=== PATIENT | female | born 1975 | race Two or more races ===

== ENCOUNTER 2024-07-31 15:56 | Outpatient (REF) | payer OTHER, SELFPAY ==
--- NOTE | ~2024-07-31 | CT_ITS ---
EXAMINATION: CT HEAD WITHOUT CONTRAST CLINICAL INFORMATION: Migraine headaches COMPARISON: None available. TECHNIQUE: Contiguous axial imaging was performed from the skull base to vertex without intravenous administration of contrast. This CT examination was performed using dose optimization techniques as appropriate, variously including the following: *Automated exposure control *Adjustment of mA and/or kV according to patient size (this includes techniques or standardized protocols for targeted exams where dose is matched to indication/reason for exam; i.e. extremities or head) *Use of iterative reconstruction technique DLP: 845 mGY*cm FINDINGS: There is no acute ischemic change. There is no intracranial hemorrhage. There is no mass-effect or midline shift. Basal cisterns and ventricles are within normal limits for age/cerebral volume. Orbits are symmetrical and unremarkable. Minimal mucosal thickening is present in the anterior ethmoid air cells and adjacent frontal sinuses. There are no bony abnormalities. CT/CT head/brain wo IV con IMPRESSION: No acute intracranial abnormality. Minimal mucosal thickening in the anterior ethmoid air cells and adjacent frontal sinuses. Electronically signed by: Heladio Reyes MD 07/31/2024 04:46 PM EDT
== END 2024-07-31 15:57 | disposition home or self-care (01) ==
LOC: HO.CT 15:56
PROVIDERS: PCP Pediatrics; Visit Provider Psychiatry & Neurology Neurology
DX: G43.909 Migraine, unspecified, not intractable, without status migrainosus (principal)
CPT/HCPCS: 70450

== ENCOUNTER → 2024-07-31 16:07 | Outpatient (BNV) | payer OTHER, SELFPAY | PROVIDERS: PCP Pediatrics; Visit Provider Radiology Diagnostic Radiology | DX: G43.909 Migraine, unspecified, not intractable, without status migrainosus (principal) | CPT/HCPCS: 70450 ==

== ENCOUNTER 2024-10-23 09:02 | Outpatient (AMB) | payer OTHER, SELFPAY ==
--- NOTE | 2024-10-23 09:04 | A.OFFVIS_ITS ---
Intake Visit Reasons: follow up Allergies Penicillins Allergy (Unknown, Verified 10/23/24 09:17) Unknown Medication List - Last Reconciled 10/23/24 by Yudy Le CNP albuterol sulfate 90 mcg/actuation (Ventolin HFA) inhalation atomoxetine 80 mg PO QAM budesonide 180 mcg/actuation (Pulmicort Flexhaler) 1 inh inhalation BID escitalopram oxalate 20 mg PO DAILY fluticasone propion-salmeterol 250-50 mcg/dose (Advair Diskus) 1 ea inhalation BID levothyroxine 50 mcg PO DAILY rimegepant (Nurtec ODT) 75 mg PO Q OTHER DAY 30 days HPI Comments Details: She tried Emgality, but had side effects of low grade stinging headache, fatigue, anxiety and depression, and medication was stopped. Mood was better after stopping Emgality. She started Nurtec every other day on 10/03/2024 and migraines were better. Migraines were happening about 4x/week, but not as severe. Symptoms associated with migraines including trouble with coordination, fatigue, and mental fog were also better and did not last as long. Symptoms still lasted about 8 hours, but cleared up about 6 hours sooner than before starting medication. She was taking Advil 600mg twice a day for joint pain. Migraines intensified around 05/2024. Does well after Botox with significant decrease in frequency and intensity, down to 2x/week. Last Botox 01/2024. Tried Nurtec which worked well without side effects. Pain came back after 6 hrs. Increase with menses and humidity and humid area. Before Botox was getting migraines 3x/week currently. 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 Rizatriptan works, but very tired for 2 hrs. Had optical migraine for 5-10 minutes on 09/07/2023. Her migraines that started over 15 years ago. She has seen a few neurologists in the [place] area and had one visit to the migraine clinic at [facility]. She says that in the past she has tried a single injection of Aimovig, prophylaxis with amitriptyline, topiramate, and may have taken propranolol, but is not sure, and one Botox injection in the past. Previously, migraines were happening 2-4x/week and could last 2-3 days. She takes Advil and lies down and it starts to improve in 45 min. She feels hung over during the migraine and after the migraine. They can be triggered by her hormonal cycles every 28 days, as well as with lights and noises, foods, including onion, garlic, wine and possibly citrus, and with weather changes, heat and humidity. She does not get an aura. Family history of anxiety and cancer, but not migraines. She cannot function in a job currently as she loses too much time from work because of her migraines, as she cannot drive or function and has to be in bed. Rizatriptan also makes her nonfunctional for 3-4 hours. Review of Systems Const Denies chills, Denies daytime sleepiness, Reports difficulty sleeping, Reports fatigue, Denies fever(s), Denies frequent falls, Reports headache(s), Denies increased appetite, Denies poor appetite, Denies snoring, Denies weakness, Denies weight gain and Denies weight loss Eyes Denies loss of vision ENT Denies vertigo, Denies dizziness, Reports headache(s) and Reports neck pain Card Denies chest pain at rest, Denies chest pain with activity, Denies syncope, Denies leg edema, Denies palpitations, Denies dyspnea and Denies dyspnea on exertion Resp Denies cough, Denies dyspnea, Denies dyspnea on exertion and Denies snoring GI Denies abdominal pain, Denies constipation, Denies heartburn, Denies diarrhea and Denies nausea Denies urinary frequency, Denies urinary incontinence and Denies urinary urgency Musc Denies abnormal gait, Reports back pain, Reports myalgias, Reports arthralgias, Reports neck pain, Denies numbness and Denies tingling Neuro Denies abnormal gait, Denies vertigo, Denies dizziness, Denies syncope, Denies frequent falls, Reports headache(s), Denies lack of coordination, Denies loss of vision, Denies memory loss, Denies numbness, Denies Other visual disturbances, Denies restless legs, Denies seizure-like activity, Denies tingling, Denies paresthesias, Denies tremor(s) and Denies weakness Psych Reports anxiety, Reports depression, Denies auditory hallucinations, Denies memory loss and Denies visual hallucinations Endo Reports fatigue and Denies palpitations Physical Exam Const Other: Deferred due to televisit. Telehealth Telehealth Telehealth Platform: Telephone Location of provider rendering services: practice address Location of patient: address on file Patient Identification confirmed using: Name, : Yes Telehealth method: voice only Patient verbally consented to treatment: Yes Patient verbally consented to billing insurance company: Yes Results Reviewed Results Reviewed: [address] [address] [address] Scan Report Signed Patient: Ann Sue MR#: [id number] : 1975 Acct:[id number] Age/Sex: 48 / F ADM Date: 07/31/24 Loc: HO.CT Attending Dr: Luan Lyle MD Ordering Physician: Luan Lyle MD Date of Service: 07/31/24 Procedure(s): CT head/brain wo IV con Accession Number(s): [id number] cc: Yesenia Dillon MD; Luan Lyle MD~ Report Number: [id number]: Total DLP = 845.00 mGy-cm EXAMINATION: CT HEAD WITHOUT CONTRAST CLINICAL INFORMATION: Migraine headaches COMPARISON: None available. TECHNIQUE: Contiguous axial imaging was performed from the skull base to vertex without intravenous administration of contrast. This CT examination was performed using dose optimization techniques as appropriate, variously including the following: *Automated exposure control *Adjustment of mA and/or kV according to patient size (this includes techniques or standardized protocols for targeted exams where dose is matched to indication/reason for exam; i.e. extremities or head) *Use of iterative reconstruction technique DLP: 845 mGY*cm FINDINGS: There is no acute ischemic change. There is no intracranial hemorrhage. There is no mass-effect or midline shift. Basal cisterns and ventricles are within normal limits for age/cerebral volume. Orbits are symmetrical and unremarkable. Minimal mucosal thickening is present in the anterior ethmoid air cells and adjacent frontal sinuses. There are no bony abnormalities. CT/CT head/brain wo IV con IMPRESSION: No acute intracranial abnormality. Minimal mucosal thickening in the anterior ethmoid air cells and adjacent frontal sinuses. Electronically signed by: Heladio Reyes MD 07/31/2024 04:46 PM EDT Assessment & Plan Assessment & Plan (1) Migraine: Code(s): G43.909 - Migraine, unspecified, not intractable, without status migrainosus Category: Medical Qualifiers: Intractability: not intractable Migraine type: unspecified Status migrainosus presence: without status migrainosus Qualified Code(s): G43.909 - Migraine, unspecified, not intractable, without status migrainosus Plan: CT scan results reviewed. Continue Nurtec 75mg 1 tablet every other day. Plan Has tried and failed: topiramate, propranolol, amitriptyline, botox, emgality (side effects), sumatriptan, rizatriptan Coding Level of Care Code Tele Est Pt Level 3 (46466) Diagnoses Migraine without status migrainosus, not intractable, unspecified migraine type G43.909 Intractability: not intractable Migraine type: unspecified Status migrainosus presence: without status migrainosus
--- OUTSIDE RECORDS SUMMARY | 2024-10-23 09:52 | XMS_ITS | Encounter Summary ---
Author Organization [facility] Address [address] [place] [phone] Phone Care Team Providers Care Supervisor Soldering Name Role Phone Rain Martinez MD Primary Care Provider [phone] Unknown, Unknown Primary Care Provider Kristina levy Pcp, Unknown Primary Care Provider Yesenia Mccullough MD Primary Care Provid er Encounter Details Date Type Department Care Team (Late st Contact Info) Description 02/23/2020 Transcribe Orders Virtual Department [address] [place] [address] Christian Nolan, [employer] [address] [place] [address] Cough (Primary Dx) Social History Tobacco Use Types Packs/Day Years Used Date Smoking Tobacco: Never Smokeless Tobacco: Never Alcohol Use Standard Drinks/Week Comments No 0 (1 standard drink = 0.6 oz pur e alcohol) Comments Unknown Sex and Gender Information Value Date Recorded Sex Assigned at Female 06/23/2020 3:36 PM EDT Legal Sex Female 7:31 PM EST Gender Identity Female 06/23/2020 3:36 PM EDT Sexual Orientation Bisexual 06/23/2020 3: 36 PM EDT documented as of this encounter Plan of Treatment Not on file documented as of this encounter Results * COVID-19 PCR Order (02/24/2020 10:00 AM EST) COVID Testing Status Specimen received in analyzing lab. [facility] Symptomatic? YES [facility] Other 02/24/2020 10:0 0 AM EST 02/24/2020 12:19 PM EST Christian Imanifamilia Nolan [employer] BODY FLUIDS AND STOOLS ORD ERABLES Final Result [facility] [address] [place] [address] [facility] [address] [place] [id number] documented in this encounter Visit Diagnoses Diagnosis Cough- Primary documented in this encounter Additional Health Concerns Infection Onset Date Last Indicated Resolved Time CoV-Risk 02/23/2020 02/24/2020 03/04/2020 1:25 AM EST CoV-Risk 10/26/2021 10/26/2021 11/06/2021 1:22 AM EDT documented as of this encounter Care Teams Supervisor Soldering Relationship Specialty Start Date End Date Rain Martinez MD [address] [place] [id number] [email or web address] PCP - General Family Medicine 11/17/18 07/25/21 Unknown, Unknown, PCP - General 07/26/21 10/25/21 Pcp, Unknown PCP - General 10/26/21 03/11/23 Yesenia Dillon MD [facility] [address] [address] PCP - General Internal Medicine 03/12/23 documented as of this encounter Additional Source Comments The information contained in this document represents components of the legal health record. It is not the complete legal health record.[facility]
--- OUTSIDE RECORDS SUMMARY | 2024-10-23 09:52 | XMS_ITS | Clinical Summary ---
Author Organization [facility] Address [address] [facility] [address] [place] [address] Phone Care Team Providers Care Geothermal Heat Pump Machinist Name Role Phone Yesenia Dillon MD Primary Care Provid er Allergies Active Allergy Reactions Criticality Noted Date Comments Latex Itching 11/30/2011 Penicillins Rash Medium 01/26/2008 Shellfish Derived Rash,Swelling High 01/26/2008 Medications sertraline (ZOLOFT) 100 MG tablet Take 100 mg by mouth daily. 2 tabs daily 5 Active ibuprofen (ADVIL,MOTRIN) 600 MG tablet Take 600 mg by mouth 4 (four) times a day. 5 Active fluticasone propionate (FLONASE) 50 mcg/actuation nasal spray 1 spray by Nasal route daily. Active ascorbic acid, vitamin C, (VITAMIN C) 100 MG tablet Take 100 mg by mouth daily. Active atomoxetine (STRATTERA) 80 mg capsule Take 80 mg by mouth every morning. 3 Active VENTOLIN HFA 90 mcg/actuation inhaler INHALE 2 PUFFS EVERY 4 HOURS NEEDED FOR WHEEZING OR SHORTNESS OF BREATH 3 Active budesonide (PULMICORT FLEXHALER) 180 mcg/actuation inhaler Inhale into the lungs. 2 Active fremanezumab-vf rm (AJOVY AUTOINJECTOR) 225 mg/1.5 mL AtIn Inject 225 mg under the skin. 2 Active escitalopram oxalate (LEXAPRO) 20 MG tablet Take 20 mg by mouth every morning. 3 Active propranoloL (INDERAL) 60 MG immediate release tablet Take 60 mg by mouth daily. 4 Active rizatriptan (MAXALT) 10 MG tablet Take 10 mg by mouth as needed. 4 Active Active Problems Problem Noted Date Diagnosed Date Inclusion cyst of vulva 01/28/2018 Overview (01/28/2018): 2018 Healing inclusion cyst that had been lanced and drained of sebum by pt. Healing well. Assessment & Plan (01/28/2018 1:57 PM EST): Healing inclusion cyst that had been lanced and drained of sebum by pt. Healing well. Abnormal uterine bleeding 10/11/2017 Overview (03/13/2023): With risk factors for EIN TSH 5.16 February 2023 , Advised to see her GP to get this treated Assessment & Plan (03/12/2023 6:05 PM EST): Unable to obtain an office biopsy easily, will defer to the sonohysterogram findings as to whether or not any tissue sampling should be obtained that day. I would encourage it given that she has significant risk factors for EIN. Some options for empiric treatment which can also address the menstrual migraine were reviewed, however she has tried various oral contraceptives including progestin only and an IUD in the past and did not have good results. She is primarily interested in making sure that there is no underlying precancerous or cancerous pathology to this Assessment & Plan (11/13/2017 12:29 PM EDT): EMB completed, await pathology results. Likely AUB-O related to perimenopause. Assessment & Plan (10/11/2017 9:12 PM EDT): Reviewed ddx of bleeding pattern including anovulatory bleeding, structural abnormality (i.e. Endometrial polyp/fibroid), or even chronic inflammation/infection. In the setting of normal pelvic exam today, recommend beginning evaluation with SHG to assess uterine lining Reviewed procedure and possible findings. Mild intermittent asthma, uncomplicated 08/14/19 15 History of depression 08/13/2014 Acquired absence of other organs 08/13/2014 Obsessive-compulsive disorder 11/30/2011 Overview (12/21/2016): Obsessive-compulsive disorder; Behavioral therapy 10 years ago - helpful. zoloft very effective. Followed by Kuldip Betancourt in [place]. Seasonal allergic rhinitis 11/30/2011 Overview (04/03/2014): Seasonal allergies; flonase prn Cough variant asthma 11/30/2011 Overview (04/03/2014): Cough variant asthma; managed with breathing exercise. Mixed anxiety and depressive disorder 11/30/2011 Overview (12/21/2016): Anxiety depression Followed at [facility], rx provider is there. Assessment & Plan (12/21/2016 10:45 AM EST): stable Migraine with aura and witho ut status migrainosus, not intractable 11/30/2011 Overview (03/12/2023): Migraine; in 2011 managed with Vimpat BID prescribed by neurologist. Frequency: up to 4/week. Topamax helped to suppress them 2023: Reports a strong menstrual component to these Assessment & Plan (03/12/2023 6:03 PM EST): Discussed that use of a fairly low-dose estradiol patch prior to the onset of menses is often very effective in preventing these menstrual migraines. Assessment & Plan (12/21/2016 10:53 AM EST): Restart Topamax Hemorrhoids 11/30/2011 Overview (04/03/2014): Hemorrhoids Uncoded H/O Pneumonia - age 14 11/30/2011 Overview (04/03/2014): H/O Pneumonia - age 14 Irritable bowel syndrome 11/06/1999 Overview (04/03/2014): Irritable bowel syndrome Attention deficit hyperactivity disorder 000 Overview (12/21/2016): ADD; previously followed by Kuldip Betancourt in [place]. Low back pain 11/06/1999 Overview (04/03/2014): Low back pain; onset 20yo, Assessment & Plan (12/21/2016 10:45 AM EST): Stable, no radiculopathy Encounters Date Type Department Care Team Description 09/05/2024 9:40 AM EDT - 09/05/2024 12:47 PM EDT Emergency [facility] [address] [place] [address] Discharge Disposition: Home or Self Care from Last 3 Months Immunizations Immunization Administration Dates Next Due COVID-19 (Pre-12/03) Pfizer Vaccine, mRNA, PF 09/30/2020,05/16/2020,04/23/2020 COVID-19 (Pre-12/03) Pfizer Vaccine, mRNA, rajinder-sucrose, PF 06/29/2021 INFLUENZA, SPLIT VIRUS, TRIV ALENT W/ PRESERVATIVE IM 11/20/2016,04/21/2014,11/08/2012 Influenza Quadrivalent MDCK Preservative Free IM 11/25/2018 Influenza Quadrivalent MDCK w/Preservative IM 01/01/2018 Influenza, whole 11/10/2018 Td, unspecified formulation 02/11/2010 Tdap 09/30/2020 Family History Medical History Relation Comments Glaucoma Father Heart disease Father Hyperlipidemia Father Hypertension Father Brain cancer Maternal Grandfather Lung disease Maternal Grandmother Breast cancer Mother Depression Mother Glaucoma Mother Coronary artery disease Paternal Grandfather Dementia Paternal Grandmother Relation Status Comments Father Alive Maternal Grandfather Maternal Grandmother Mother Alive Paternal Grandfather Paternal Grandmother Social History Tobacco Use Types Packs/Day Years Used Date Smoking Tobacco: Never Passive Smoke Exposure: Never Smokeless Tobacco: Never Tobacco Cessation:Counseling Given: Not Answered Alcohol Use Standard Drinks/Week Comments No 0 (1 standard drink = 0.6 oz pur e alcohol) Education Answer Date Recorded Are you interested in more education? Not on domonique e 06/07/2022 Are you concerned about learning? Not on file 06/07/2022 No 06/07/2022 No 06/07/2022 Food Answer Date Recorded Within the past 6 months we worried whether our food would run out before we got money to buy more. Never True 09/05/2024 Within the past 6 months the food we bought just didn't last and we didn't have enough money to get more. Never True Residential Stability Answer Date Recor ded What is your housing situation today? I have priyanka kahn 09/05/2024 How many times have you move d in the past 12 months? Zero (I did not move) 09/05/2024 Paying for Meds Answer Date Recorded Do you have trouble paying for medicines? No 09/05/2024 Paying Utility Bills Answer Date Record ed Do you have trouble paying your heating or elect ricity bill? No 09/05/2024 Transportation Answer Date Recorded Has the lack of transportati on kept you from medical appointments or from getting medications? No 09/05/2024 Digital Access Answer Date Recorded No 09/05/2024 Yes 09/05/2024 Do you have reliable internet access at home? Ye s 09/05/2024 Do you have a device (e.g., phone, tablet, computer) with a working camera? Yes 09/05/2024 Intimate Partner Violence Answer Date R ecorded Are you denied basic needs s uch as food, clothing, or medical care? No 09/05/2024 In the past 12 months have y ou been in a relationship with a person who hurts, threatens, or tries to control you? No 09/05/2024 Are you denied basic needs s [facility] as food, clothing, or medical care? No 09/05/2024 In the past 12 months have y ou been in a relationship with a person who hurts, threatens, or tries to control you? No 09/05/2024 Comments No Sex and Gender Information Value Date Recorded Sex Assigned at Female 06/23/2020 3:36 PM EDT Legal Sex Female 7:31 PM EST Gender Identity Female 06/23/2020 3:36 PM EDT Sexual Orientation Bisexual 06/23/2020 3: 36 PM EDT Last Filed Vital Signs Vital Sign Reading Time Taken Comments Blood Pressure 119/64 09/05/2024 12:46 PM EDT Pulse 86 09/05/2024 12:46 PM EDT Temperature 36.1 C (97 F) 09/05/2024 12:46 PM EDT Respiratory Rate 17 09/05/2024 12:46 PM EDT Oxygen Saturation 99% 09/05/2024 12:46 PM EDT Inhaled Oxygen Concentration - - Weight 107 kg (236 lb) 09/05/2024 9:10 AM EDT Height 167.6 cm (5' 6 ) 09/05/2024 9:10 AM EDT Body Mass Index 38.09 09/05/2024 9:10 AM EDT Plan of Treatment Health Maintenance Due Date Last Done Comments LIPID PANEL 1976 DEPRESSION SCREENING 1988 HEPATITIS C SCREENING 1994 HIV ONE-TIME SCREENING (18-65 YEARS) 1994 PNEUMOCOCCAL VACCINES (0-49 years) (1 of 2 - PCV) 09/21/1995 COLOGUARD 2021 COLONOSCOPY 2021 COLORECTAL CANCER SCREENING 2021 FIT TEST 2021 FOBT 2021 SIGMOIDOSCOPY 2021 VIRTUAL COLONOSCOPY 2021 COVID-19 VACCINE ( season) 2023 11/02/2022, 01/25/2022, 06/29/2021, Additional history exists MAMMOGRAM 05/15/2024 05/15/2022 INFLUENZA VACCINE (#1) 2024 , 01/25/2022, 11/25/2018, Additional history exists SCREENING FOR DIABETES 11/15/2024 11/15/2021 PAP SMEAR 03/06/2025 03/06/2022 Adult Td,Tdap Booster 09/30/2030 09/30/2020, 011 SMOKING STATUS SCREENING (Once After 26 Yrs) Completed 04/19/2024 HEPATITIS A VACCINES Aged Out No long er eligible based on patient's age to complete this topic HIB VACCINES Aged Out No longer eligi ble based on patient's age to complete this topic MENINGOCOCCAL VACCINES (ACWY) Aged Out No longer eligible based on patient's age to complete this topic MENINGOCOCCAL VACCINES (B) Aged Out N o longer eligible based on patient's age to complete this topic Medical Devices Not on file Procedures Procedure Name Priority Date/Time Associated Diagnosis Comments XR CHEST PA AND LATERAL 2 VIEWS Routine 09/05/2024 10:45 AM EDT TROPONIN STAT 09/05/2024 10:44 AM EDT LIPASE STAT 09/05/2024 9:37 AM EDT LFTS (HEPATIC PANEL) STAT 09/05/2024 9:37 AM EDT TROPONIN STAT 09/05/2024 9:37 AM EDT BASIC METABOLIC PANEL STAT 09/05/2024 9:37 AM EDT CBC AND DIFFERENTIAL STAT 09/05/2024 9:37 AM EDT ECG 12-LEAD STAT 09/05/2024 9:07 AM EDT BI MAMMOGRAM SCREENING WITH TOMOSYNTHESIS WITH CAD (BILATERAL) Routine 05/15/2022 10:05 AM EDT Encounter for screening mammogram for malignant neoplasm of breast PAP TEST Routine 03/06/2022 12:00 AM EST from Last 3 Months or Most Recently Relevant to Health Maintenance Results * XR CHEST PA AND LATERAL 2 VIEWS (09/05/2024 10:45 AM EDT) Anatomical Region Laterality Modality Chest Computed Radiogr aphy 09/05/2024 11:2 8 AM EDT Impressions 09/05/2024 11:38 AM EDT No acute abnormality. ATTESTATION: I, Abena Oviedo as teaching physician, have reviewed the images for this case and if necessary edited the report originally created by Bran Garcia. Narrative 09/05/2024 11:38 AM EDT XR CHEST PA AND LATERAL 2 VIEWS Referring clinician's provided indication for this examination in [facility]: Pain COMPARISON: XR CHEST PA AND LATERAL 2 VIEWS FINDINGS: Devices/Tubes/Lines: None. Lungs: No focal consolidation or pulmonary edema. Pleura: No pleural effusion or pneumothorax. Heart/Mediastinum: Normal heart and mediastinum. Bones/Soft Tissues: No significant abnormality. Procedure Note Abena Oviedo MD - 09/05/2024 XR CHEST PA AND LATERAL 2 VIEWS Referring clinician's provided indication for this examination in [facility]:Pain COMPARISON: XR CHEST PA AND LATERAL 2 VIEWS FINDINGS: Devices/Tubes/Lines: None. Lungs: No focal consolidation or pulmonary edema. Pleura: No pleural effusion or pneumothorax. Heart/Mediastinum: Normal heart and mediastinum. Bones/Soft Tissues: No significant abnormality. IMPRESSION: No acute abnormality. ATTESTATION: I, Abena Oviedo as teaching physician, have reviewed theimages for this case and if necessary edited the report originally createdby Bran Garcia. us Arlin Montgomery PA-C IMG XR CHEST Final Result * Troponin (09/05/2024 10:44 AM EDT) Only the most recent of2 resultswithin the time period is included. Troponin-T, HS Gen5 <6 0 - 9 ng/L [facility] Blood 09/05/2024 10:4 4 AM EDT 09/05/2024 11:05 AM EDT us Sterling Silva MD LAB BLOOD ORDERABLES Final Result [address] [address] * LFTs (hepatic panel) (09/05/2024 9:37 AM EDT) ALKALINE PHOSPHATASE 73 39 - 117 U/L [facility] TOTAL BILIRUBIN <0.2 0.0 - 1.2 mg/dL [facility] DIRECT BILIRUBIN <0.1 0.0 - 0.2 mg/dL [facility] Bilirubin (Indirect) NOT CALCULATED 0 - 1.5 mg/dL [facility] AST 17 0 - 37 U/L [facility] ALT 21 0 - 40 U/L [facility] TOTAL PROTEIN 7.6 6.5 - 8.0 g/dL [facility] ALBUMIN 3.9 3.9 - 4.8 g/dL [facility] GLOBULIN 3.7 1 - 4.8 g/dL [facility] A/G Ratio 1.05 1.00 - 4.80 RATIO [facility] Blood 09/05/2024 9:37 AM EDT 09/05/2024 9:46 AM EDT us Sterling Silva MD LAB BLOOD ORDERABLES Final Result Performing Organization Address City/State/[facility] [[email or web address]] Co de Phone Number [address] [address] * (ABNORMAL) CBC and differential (09/05/2024 9:37 AM EDT) WBC 9.25 4.00 - 11.00 K/uL [facility] RBC 4.73 4.00 - 5.20 M/uL [facility] HGB 14.4 12.0 - 16.0 g/dL [facility] HCT 43.9 36.0 - 46.0 % [facility] PLT 357 150 - 450 K/uL [facility] MCV 92.8 80.0 - 100.0 [facility] MCH 30.4 27.0 - 31.0 pg [facility] MCHC 32.8 32.0 - 36.0 g/dL [facility] RDW 13.2 11.5 - 14.5 % [facility] MPV 9.8 8.4 - 12.0 [facility] NRBC 0.00 0.00 /100 WBCs [facility] ABSOLUTE NRBC 0.00 0.00 K/uL [facility] DIFF METHOD Auto [facility] NEUTS 65.2 48.0 - 76.0 % [facility] LYMPHS 22.6 18.0 - 41.0 % [facility] MONOS 5.9 4.0 - 11.0 % [facility] EOS 5.2(H) 0.0 - 5.0 % [facility] BASOS 0.6 0.0 - 1.5 % [facility] Granulocytes, immature (%) 0.5 0.0 - 0.9 % [facility] ABSOLUTE NEUTS 6.02 1.92 - 7.60 K/uL [facility] ABSOLUTE LYMPHS 2.09 0.72 - 4.10 K/uL [facility] ABSOLUTE MONOS 0.55 0.16 - 1.10 K/uL [facility] ABSOLUTE EOS 0.48 0.00 - 0.50 K/uL [facility] ABSOLUTE BASOS 0.06 0.00 - 0.15 K/uL [facility] Granulocytes, immature 0.05 0.00 - 0.09 K/uL [facility] Blood 09/05/2024 9:37 AM EDT 09/05/2024 9:46 AM EDT Sterling Silva MD LAB BLOOD ORDERABLES Final Result [address] [address] * (ABNORMAL) Lipase (09/05/2024 9:37 AM EDT) LIPASE 72(H) 16 - 63 U/L [facility] Blood 09/05/2024 9:37 AM EDT 09/05/2024 9:46 AM EDT Sterling Silva MD LAB BLOOD ORDERABLES Final Result [address] [address] * (ABNORMAL) Basic metabolic panel (09/05/2024 9:37 AM EDT) SODIUM 134 133 - 146 mmol/L [facility] CHLORIDE 98 96 - 108 mmol/L [facility] POTASSIUM 3.8 3.3 - 5.1 mmol/L [facility] CO2 26 21 - 35 mmol/L [facility] BUN 15 6 - 19 mg/dL [facility] CREATININE 0.60 0.5 - 1.5 mg/dL [facility] GLUCOSE 162(H) 70 - 99 mg/dL [facility] CALCIUM 9.9 8.4 - 10.3 mg/dL [facility] EGFR 111 >59 mL/min/1.7 3m2 [facility] Comment:Estimated glomerular filtration rate calculated using the CKD-EPI refit equation. ANION GAP 14 10 - 20 mmol/L [facility] Blood 09/05/2024 9:37 AM EDT 09/05/2024 9:46 AM EDT us Sterling Silva MD LAB BLOOD ORDERABLES Final Result [address] [address] * ECG 12-LEAD (09/05/2024 9:07 AM EDT) Ventricular Rate EKG/MIN 84 BPM [facility] Atrial Rate 84 BPM [facility] OK Interval 158 ms [facility] QRS Duration 106 ms [facility] QT Interval 366 ms [facility] QTC Interval 432 ms [facility] P [place] 18 degrees [facility] R Wave [place] 7 degrees [facility] T Wave [place] 7 degrees [facility] 09/05/2024 9:07 AM EDT 09/06/2024 10:03 AM EDT Narrative [facility] - 09/06/2024 10:03 AM EDT Normal sinus rhythm Normal ECG When compared with ECG of 15-Nov-2021 13:49, No significant change was found Confirmed by Cosme Lam ([id number]) on 09/06/2024 10:03:16 AM us Sterling Silva MD ECG ORDERABLES Final Resul t [facility] * BI MAMMOGRAM SCREENING WITH TOMOSYNTHESIS WITH CAD (BILATERAL) (05/15/2022 10:05 AM EDT) Anatomical Region Laterality Modality Breast Left, Breast Right, Breast Bilateral Bila teral Mammography 05/16/2022 4:08 PM EDT Impressions 05/16/2022 5:14 PM EDT No mammographic signs of malignancy. Annual screening is recommended. BI-RADS CATEGORY: 2 - Benign finding. DENSITY: There are scattered fibroglandular densities. Narrative 05/16/2022 5:14 PM EDT Bilateral mammography is performed in conjunction with computed aided detection. 3-D tomography along with 2-D C view imaging was also performed. This is baseline mammogram. No suspicious masses, areas of architectural distortion or suspicious microcalcifications. Subcentimeter intramammary lymph nodes in the upper outer left breast. Procedure Note Waldemar Bowman MD - 05/16/2022 Bilateral mammography is performed in conjunction with computed aideddetection. 3-D tomography along with 2-D C view imaging was alsoperformed. This is baseline mammogram. No suspicious masses, areas of architectural distortion or suspiciousmicrocalcifications. Subcentimeter intramammary lymph nodes in the upperouter left breast. IMPRESSION: No mammographic signs of malignancy. Annual screening is recommended. BI-RADS CATEGORY: 2 - Benign finding. DENSITY: There are scattered fibroglandular densities. Olya Mullen COLLAR WORKER IMG MG EXAMS Final Result * Pap Test (03/06/2022 12:00 AM EST) 03/06/2022 03/07/2022 10: 09 AM EST Narrative SEE NARRATIVE - 03/13/2022 8:22 AM EST [address] [address] Csr: Karena Grey MD BAG PRINTER Cytology Report FINAL DIAGNOSIS A. PAP SMEAR (SUREPATH) CE: SPECIMEN ADEQUACY: Satisfactory for evaluation; transformation zone absent/insufficient. INTERPRETATION: NEGATIVE FOR INTRAEPITHELIAL LESION OR MALIGNANCY. Electronically Signed Out By: BRONWYN Rain(ASCP) The Pap test is a screening test primarily for squamous cancers and precursors and has associated false-negative and false-positive results. New technologies such as liquid-based preparations may decrease but will not eliminate all false-negative results. Regular sampling and follow-up of unexplained clinical signs and symptoms are recommended to minimize false negative results. PROCEDURES/ADDENDA HPV Testing (Requested) Ordered Date: 03/07/2022 A. PAP SMEAR (SUREPATH) CE: Human Papilloma Virus Test NEGATIVE for high-risk Human Papilloma Virus types 16, 18, 45 and the Other high risk probe set (Includes 31, 33, 35, 39, 51, 52, 56, 58, 59, 66, 68) Note: Testing performed by [employer] HR-HPV analysis. Clinical correlation is advised. This HPV test was performed at [facility], [address] [place] [address]. This test has been FDA approved for [employer] cervical cytology specimens. The accuracy and precision of this test for all other specimen sources has been verified in the Cytopathology Laboratory of the [facility] and has not been cleared or approved by the U.S. Food and Drug Administration. Clinical correlation is advised. CLINICAL HISTORY Date of Last Menstrual Period: 02-24-2022 Other Clinical Conditions: Screening Pap SPECIMEN SOURCE A: PAP SMEAR (SUREPATH) CE Patient Name: INDIOSHAWNATIFFANI BENITEZ : 1975 (Age: 46) Sex: F Institution: [facility] Location: GOBGYN Date of Collection: 03/06/2022 Date of Reported: 03/13/2022 08:22 Results to: Olya Mullen MSN, BS us Olya Mullen COLLAR WORKER CYTOLOGY ORDERABLES Final Resu lt SEE NARRATIVE from Last 3 Months or Most Recently Relevant to Health Maintenance Insurance [address] [employer] [address] [employer] [facility] [facility] [address] [employer] [address] [employer] [address] [facility] [address] [employer] [address] . [address] [employer] [place] [address] Care Teams Geothermal Heat Pump Machinist Relationship Specialty Start Date End Date Yesenia Dillon MD [address] [address] PCP - General Internal Medicine 03/12/23 Additional Source Comments The information contained in this document represents components of the legal health record. It is not the complete legal health record.[facility]
--- OUTSIDE RECORDS SUMMARY | 2024-10-23 09:52 | XMS_ITS | Encounter Summary ---
Author Organization [facility] Address [address] [facility] [address] [place] [phone] Phone Care Team Providers Care Weatherization And Housing Inspector Name Role Phone Pcp, Unknown Primary Care Provider Yesenia Mccullough MD Primary Care Provid er Encounter Details Date Type Department Care Team (Late st Contact Info) Description 03/06/2022 Procedure [facility], [facility]- [address] [address] Social History Tobacco Use Types Packs/Day Years Used Date Smoking Tobacco: Never Smokeless Tobacco: Never Alcohol Use Standard Drinks/Week Comments No 0 (1 standard drink = 0.6 oz pur e alcohol) Comments No Sex and Gender Information Value Date Recorded Sex Assigned at Female 06/23/2020 3:36 PM EDT Legal Sex Female 7:31 PM EST Gender Identity Female 06/23/2020 3:36 PM EDT Sexual Orientation Bisexual 06/23/2020 3: 36 PM EDT documented as of this encounter Plan of Treatment Not on file documented as of this encounter Visit Diagnoses Not on filedocumented in this encounter Care Teams Weatherization And Housing Inspector Relationship Specialty Start Date End Date Pcp, Unknown PCP - General 10/26/21 03/11/23 Yesenia Dillon MD [address] [address] PCP - General Internal Medicine 03/12/23 documented as of this encounter Additional Source Comments The information contained in this document represents components of the legal health record. It is not the complete legal health record.[facility]
== END 2024-10-23 09:31 | disposition home or self-care (01) ==
LOC: HO.HSM 09:02
PROVIDERS: PCP Pediatrics; Visit Provider Registered Nurse
DX: G43.909 Migraine, unspecified, not intractable, without status migrainosus (principal)
CPT/HCPCS: 99213